=== PATIENT | female | born 1990 | race Two or more races ===

== ENCOUNTER 2018-07-30 17:50 | Emergency (ER) | payer SELFPAY ==
[2018-07-30] MEDS ORDERED: Acetaminophen/oxyCODONE 325-5 MG Tab PO ONE (18:25)
--- NOTE | 2018-07-30 18:33 | EDM.PDOC ---
ED HPI GENERAL MEDICAL PROBLEM - General Chief Complaint: ENT Problem Stated Complaint: EAR PAIN Time Seen by Provider: 07/30/18 18:15 Source of Information: Reports: Patient History Limitations: Reports: No Limitations - History of Present Illness INITIAL COMMENTS - FREE TEXT/NARRATIVE: 28 year old female presents for evaluation and treatment of left ear pain. Patient reports she has had a tooth ache for several days. Was seen in the clinic and placed on Augmentin. Reports symptoms have not improved. Taking OTC tylenol and motrin but continues to have significant pain. Reports pain to the left upper molar and into the left ear. Patient reports she has an appointment with a dentist this week but the pain is getting to severe. Denies any fevers, chills,, nausea or vomiting. Left Ear Pain Score (Numeric/FACES): 10 - Related Data Allergies Allergy/AdvReac Type Severity Reaction Status Date / Time No Known Allergies Allergy Verified 07/30/18 17:59 Home Meds: Home Meds Acetaminophen/oxyCODONE [Percocet 325-5 MG] 1 tab PO Q4HR PRN #15 tab 07/30/18 [ Rx] Amoxicillin/Potassium Clav [Augmentin 875-125 Tablet] 1 tab PO DAILY 07/30/18 [ History] Meloxicam [Mobic] 15 mg PO 15 07/30/18 [History] Ofloxacin 5 ml OT DAILY #1 bottle 07/30/18 [Rx] Past Medical History - Past Health History Medical/Surgical History: Denies Medical/Surgical History Social & Family History - Family History Family Medical History: Noncontributory - Tobacco Use Smoking Status *Q: Unknown Ever Smoked ED ROS ENT - Review of Systems Review Of Systems: See Below Constitutional: Denies: Fever, Chills HEENT: Reports: Dental Pain (left upper molar), Ear Pain (left) GI/Abdominal: Denies: Nausea, Vomiting ED EXAM, ENT - Physical Exam Exam: See Below Exam Limited By: No Limitations General Appearance: Alert, WD/WN, Mild Distress Ears: Normal External Exam, Normal Canal, Hearing Grossly Normal, TM Erythema ( left). No: TM Bulging Nose: Normal Inspection Mouth/Throat: Normal Inspection, Normal Gums, Normal Lips, Normal Oropharynx, Dental Tenderness (#14 and #15) Neck: Normal Inspection. No: Lymphadenopathy (L), Lymphadenopathy (R) Respiratory/Chest: No Respiratory Distress, Lungs Clear, Normal Breath Sounds Cardiovascular: Normal Peripheral Pulses, Regular Rate, Rhythm, No Murmur Neurological: Alert, Oriented, Normal Cognition Psychiatric: Normal Affect, Normal Mood Skin: Warm, Dry, Normal Color Course - Vital Signs Last Recorded V/S: Last Vital Signs Temp 98.4 F 07/30/18 17:56 Pulse 88 07/30/18 17:56 Resp 18 07/30/18 17:56 BP 124/75 07/30/18 17:56 Pulse Ox 100 07/30/18 17:56 - Orders/Labs/Meds Meds: Medications Discontinued Medications Generic Name Dose Route Start Last Admin Trade Name Freq PRN Reason Stop Dose Admin Oxycodone/Acetaminophen 1 tab 07/30/18 18:25 07/30/18 18:34 Percocet 325-5 Mg PO 07/30/18 18:26 1 tab ONETIME ONE Administration - Re-Assessments/Exams Free Text/Narrative Re-Assessment/Exam: 07/30/18 18:26 Will give some medication for pain. Recommend continuing the augmentin as prescribed and seeing the dentist as planned. Discharge instructions as documented. Departure - Departure Time of Disposition: 18:30 Disposition: Home, Self-Care 01 Condition: Fair Clinical Impression: Otitis externa, Dental abscess - Discharge Information *PRESCRIPTION DRUG MONITORING PROGRAM REVIEWED*: Yes *COPY OF PRESCRIPTION DRUG MONITORING REPORT IN PATIENT CHERRY: No Prescriptions: Acetaminophen/oxyCODONE [Percocet 325-5 MG] 1 tab PO Q4HR PRN #15 tab PRN Reason: Pain Ofloxacin 5 ml OT DAILY #1 bottle Instructions: Otitis Externa, [id number], Dental Abscess, [id number] Referrals: PCP,None [Primary Care Provider] - Forms: ED Department Discharge Additional Instructions: you were given medication in the ER that can affect your ability to drive and operate machinery. Do not drive or operate machinery within 10 hours taking prescription narcotic pain medication. May continue take meloxicam as prescribed. For pain not relieved by meloxicam may take Percocet 1 tab every 4-6 hours. Percocet is habit-forming, take as few these as needed to control your pain. Do not drive or operate machinery within 10 hours of taking Percocet. may also try Orajel or clove oil as needed for additional pain relief. eardrops 10 drops to the left ear daily for 7 days. Follow up with your dentist as planned this week. Please return to the ER if your symptoms change or worsen.
== END 2018-07-30 18:55 | disposition home or self-care (01) ==
LOC: JD.ED 17:50
DX: K04.7 Periapical abscess without sinus (principal); H60.92 Unspecified otitis externa, left ear
CPT/HCPCS: 99282; A9270; 99283